=== PATIENT | female | born 1995 | race African-American/Black ===

== ENCOUNTER 2016-06-29 15:53 | Emergency (ER) | payer OTHER ==
[~2016-06-29] VITALS: Wt 60.5 kg
[2016-06-29 16:44] LABS: URINE BLOOD (Dip) POC Trace-lysed (NEGATIVE)
[2016-06-29] MEDS ORDERED: HYDROCODONE/APAP (5/325) TAB PO ONE (17:00)
--- NOTE | 2016-06-29 17:07 | ERD ---
ER Documentation Chief Complaint Date/Time DATE: 06/29/16 TIME: 17:06 Chief Complaint SORE THROAT X 2 DAYS HPI This is 21-year-old female who presents to the emergency department complaining of a sore throat for the past week. States she is concerned that she has gonorrhea in her mouth. States she also has some irritation when she urinates and some lower abdominal pain. States she has taken Tylenol with no improvement in pain. Patient had unprotected sex and she is unsure when her last menstrual period is unsure if she is . Denies any fevers or chills ROS All systems reviewed and are negative except as per history of present illness. Medications Home Meds Active Scripts Hydrocodone/Acetaminophen ([place] 5-325 Tablet) 1 Each Tablet, 1 TAB PO Q6H Y for PAIN, #6 TAB Prov:KOBE DUEÑAS PA-C 06/29/16 Cetirizine Hcl* (Zyrtec*) 10 Mg Capsule, 10 MG PO DAILY, #10 TAB.CHEW Prov:KOBE DUEÑAS PA-C 06/29/16 Fluticasone Propionate* (Fluticasone Propionate* Nasal) 50 Mcg/[place] - 16 Gm [place].susp, 1 SPRAY NASAL BID, #1 BOTTLE TO EACH NOSTRIL Prov:KOBE DUEÑAS PA-C 06/29/16 Ibuprofen* (Motrin*) 800 Mg Tab, 800 MG PO Q6, #30 TAB Prov:KOBE DUEÑAS PA-C 06/29/16 Amoxicillin* (Amoxicillin*) 500 Mg Cap, 500 MG PO TID for 10 Days, CAP Prov:KOBE DUEÑAS PA-C 06/29/16 Allergies Allergies: Coded Allergies: No Known Allergy (Unverified , 06/06/12) PMhx/Soc History of Surgery: No Anesthesia Reaction: No Hx Neurological Disorder: No Hx Respiratory Disorders: No Hx Cardiac Disorders: No Hx Psychiatric Problems: No Hx Miscellaneous Medical Probl: No Hx Alcohol Use: No Hx Substance Use: No Hx Tobacco Use: No Physical Exam Vitals Vital Signs Date Time Temp Pulse Resp B/P Pulse Ox O2 Delivery O2 Flow Rate FiO2 06/29/16 15:55 98.0 85 20 143/63 99 Physical Exam Const: No acute distress, talkative Head: Atraumatic Eyes: Normal Conjunctiva ENT: Normal External Ears, Nose and Mouth. Neck: Full range of motion..~ No meningismus. Resp: Clear to auscultation bilaterally Cardio: Regular rate and rhythm, no murmurs Abd: Soft, mild suprapubic tenderness non distended. Normal bowel sounds. No right lower quadrant pain. No tenderness at McBurney's. No left lower quadrant pain. Skin: No petechiae or rashes Back: No midline or flank tenderness Ext: No cyanosis, or edema Neur: Awake and alert Psych: Normal Mood and Affect Results 24 hrs Laboratory Tests Test 06/29/16 16:44 Bedside Urine Blood Trace-lysed Bedside Urine Glucose (UA) Negative Bedside Urine Ketones (LAB) Negative Bedside Urine Leukocyte Esterase (L Negative Bedside Urine Nitrite (LAB) Negative Bedside Urine Protein (LAB) Trace Bedside Urine pH (LAB) 6.0 Current Medications Medications (Trade) Dose Ordered Sig/Kimber Route PRN Reason Start Time Stop Time Status Last Admin Dose Admin Acetaminophen/ Hydrocodone Bitart ([place] (5/325)) 1 tab ONCE ONCE PO 06/29/16 17:00 06/29/16 17:01 DC 06/29/16 16:45 Ceftriaxone Sodium (Rocephin) 250 mg ONCE ONCE IM 06/29/16 18:00 06/29/16 18:01 DC 06/29/16 18:04 Azithromycin (Zithromax) 1,000 mg ONCE ONCE PO 06/29/16 18:00 06/29/16 18:01 DC 06/29/16 18:03 Procedures/MDM This 21-year-old female who presents to the emergency department today with multiple complaints. Patient was concerned that she had a sexually transmitted infection in her throat. On physical exam patient does have some erythema however I have low suspicion for gonococcal pharyngitis. Dr. León did see and evaluate the patient and he is in agreement. Patient will be treated for strep pharyngitis. Patient is talkative and she is afebrile. I have low suspicion for peritonsillar abscess or retropharyngeal abscess. Patient was complaining of some urinary complaints and she was unsure if she was for did obtain a UA and urine . UA is negative for infection. test is negative. Low Suspicion for tubo-ovarian abscess, ovarian torsion or ectopic . Patient has no right lower quadrant pain and no tenderness in McBurney's and I have low suspicion for any acute surgical abdomen. Low suspicion for PID. Patient was treated here for gonorrhea and chlamydia with ceftriaxone and azithromycin. I did send her urine for culture. I have explained this to her. I' ve explained to the patient that she would be notified if her test results came positive. Give her precautions and patient was instructed to not have unprotected sex. She was given [place] here for pain. She was discharged home on amoxicillin as well as Motrin. Patient requested from the nurse that she have something stronger and what she was given here in the emergency department. Patient was given 6 tablets of [place]. At this time the patient is stable for discharge and outpatient management. Patient should follow up with their PCP in the next 1-2 days. They may return to the emergency department sooner for any persistent or worsening of symptoms. Patient understood and agreed with the plan. Dr. León has seen and evaluated the patient and he is in agreement with the plan Departure Diagnosis: Primary Impression: Multiple complaints Condition: Fair KOBE DUEÑAS PA-C Jun 29, 2016 17:07
[2016-06-29] MEDS ORDERED: CEFTRIAXONE 250 MG INJ IM ONE (18:00)
[2016-06-29] MEDS ORDERED: AZITHROMYCIN 250 MG TAB PO ONE (18:00)
[2016-06-29] MEDS ORDERED: AMO500 PO (18:18)
[2016-06-29] MEDS ORDERED: CETI10CA PO (18:19)
[2016-06-29] MEDS ORDERED: FLUT16SP17 NASAL (18:19)
[2016-06-29] MEDS ORDERED: IBUP800T25 PO (18:19)
[2016-06-29] MEDS ORDERED: HYDR-906 PO (18:30)
[2016-06-29 18:34] VITALS: BP 128/66; PULSE 76; RESP 20; TEMP 98.1
== END 2016-06-29 18:40 | disposition home or self-care (01) ==
LOC: FTE 15:53
DX: J02.9 Acute pharyngitis, unspecified (principal); R10.30 Lower abdominal pain, unspecified; N39.8 Other specified disorders of urinary system
CPT/HCPCS: 81003; 87591; J0696; Z7610; 96372

== ENCOUNTER 2017-05-06 16:36 | Emergency (ER) | END 2017-05-06 20:13 | disposition home or self-care (01) ==